=== PATIENT | female | born 1970 | race Hispanic/Latino ===

== ENCOUNTER 2018-07-31 16:43 | Outpatient (CLI) | payer OTHER, SELFPAY ==
--- NOTE | 2018-07-31 23:35 | RAD ---
CHEST TWO VIEWS 07/31/18 No prior films were available for comparison. The heart is normal in size. There is no vascular conge stion, edema, or pleural effusion. An old rib fracture or two are noted on the left. There are no lob ar infiltrates, but there is perhaps some mild prominence of the interstitial markings, which could b e chronic or acute. The mediastinum appears normal. Degenerative changes are seen in the mid thoracic area. IMPRESSION: Slight prominence of lung markings. POS: HOME
== END 2018-07-31 16:44 | disposition home or self-care (01) ==
LOC: BURRAD 16:43
PROVIDERS: ATTEND Family Medicine
DX: R06.02 Shortness of breath (principal)
CPT/HCPCS: 71046

== ENCOUNTER 2020-09-14 14:26 | Outpatient (CLI) | payer OTHER ==
--- NOTE | 2020-09-14 20:26 | RAD ---
LEFT FOOT THREE VIEWS: 09/14/20 No fracture or periosteal reaction was seen. The bones and joints were unremarkable for age. A large calcaneal spur was noted. IMPRESSION: Calcaneal spur. POS: HOME
--- NOTE | 2020-09-14 20:29 | RAD ---
RIGHT FOOT THREE VIEWS: 09/14/20 No fracture, dislocation, or periosteal reaction was seen. A large calcaneal spur was present. The cristopher ints were unremarkable in appearance. IMPRESSION: Large calcaneal spur. POS: HOME
== END 2020-09-14 14:27 | disposition home or self-care (01) ==
LOC: BURRAD 14:26
PROVIDERS: ATTEND Nurse Practitioner Family
DX: M79.671 Pain in right foot (principal); M79.672 Pain in left foot; M77.32 Calcaneal spur, left foot; M77.31 Calcaneal spur, right foot